=== PATIENT | female | born 1985 | race Two or more races ===

== ENCOUNTER 2017-07-19 10:44 | Inpatient (IN) | payer BC ==
[~2017-07-19] VITALS: Ht 162.6 cm; Wt 92.3 kg
[~2017-07-19 10:44] MED LIST: CEFAZOLIN 1 GM INJ ONE
[2017-07-19 11:18] VITALS: Ht 162.6 cm; Wt 92.3 kg
[2017-07-19 11:19] VITALS: BP 112/70; PULSE 77
[2017-07-19] MEDS ORDERED: PRENAT PO (11:21)
[2017-07-19] MEDS: LACTATED RINGER'S 1,000 ML IV SCH ×3 (11:58→23:26)
[2017-07-19] MEDS ORDERED: OXYTOCIN 30 UNITS/LR 500 ML IV PRN ×2 (12:00→18:30)
[2017-07-19] MEDS ORDERED: METHYLERGONOVINE 0.2 MG INJ IM PRN ×2 (12:00→18:30)
[2017-07-19] MEDS ORDERED: MISOPROSTOL 200 MCG TAB PR PRN ×2 (12:00→18:30)
[2017-07-19] MEDS ORDERED: CARBOPROST 250 MCG INJ IM PRN ×2 (12:00→18:30)
[2017-07-19 12:32] LABS: BASOPHILS % 0.2 % (0.0-2.0); EOSINOPHILS # 0.1 10^3/ul (0.0-0.5); EOSINOPHILS % 1.6 % (0.0-7.0); HEMOGLOBIN 11.5 g/dl (12.0-16.0); LYMPHOCYTES # 1.6 10^3/ul (0.8-2.9); MEAN CORPUSCULAR HEMOGLOBIN 31.2 pg (29.0-33.0); MEAN CORPUSCULAR HGB CONC 33.8 g/dl (32.0-37.0); MEAN CORPUSCULAR VOLUME 92.1 fl (82.0-101.0); MEAN PLATELET VOLUME 11.7 fl (7.4-10.4); MONOCYTE # 0.4 10^3/ul (0.3-0.9); MONOCYTES % 7.7 % (0.0-11.0); NEUTROPHIL # 3.2 10^3/ul (1.6-7.5); NEUTROPHILS % 59.2 % (39.0-77.0); PLATELET COUNT 148 10^3/UL (140-415); RED BLOOD COUNT 3.69 10^6/ul (4.20-5.40); RED CELL DISTRIBUTION WIDTH 15.9 % (11.5-14.5); WHITE BLOOD COUNT 5.5 10^3/ul (4.8-10.8)
[2017-07-19 12:45] LABS: PARTIAL THROMBOPLASTIN TIME 25.8 Sec (25.0-35.0)
[2017-07-19] MEDS ORDERED: CEFAZOLIN 2 GM/50 ML (PMX) 50 ML IVPB ONE (13:00)
[2017-07-19 13:25] LABS: INR 0.96; PROTIME 12.8 Sec (12.2-14.2)
[2017-07-19] MEDS ORDERED: ONDANSETRON 4 MG INJ ONE ×2 (13:39→14:26)
[2017-07-19] MEDS ORDERED: CITRIC ACID/NA CITRATE 30 ML CUP ONE (13:39)
[2017-07-19] MEDS ORDERED: ONDANSETRON 4 MG INJ IV STA (13:45)
[2017-07-19] MEDS ORDERED: CITRIC ACID/NA CITRATE 30 ML CUP PO ONE (14:00)
[2017-07-19] MEDS ORDERED: morphine SULFATE/PF (10 MG/10 ML) INJ ONE (14:25)
[2017-07-19] MEDS ORDERED: OXYTOCIN 10 UNIT INJ ONE (14:26)
[2017-07-19] MEDS ORDERED: PHENYLephrine (100 MCG/ML) 5ML SYG ONE (14:26)
[2017-07-19] MEDS ORDERED: DEXAMETHASONE 4 MG/ML 1 ML INJ ONE (14:26)
[2017-07-19] MEDS ORDERED: METOCLOPRAMIDE 10 MG INJ ONE (14:26)
[2017-07-19] MEDS ORDERED: KETOROLAC 30 MG INJ ONE (14:26)
[2017-07-19] MEDS ORDERED: FENTAnyl 50 MCG/ML VIAL ONE (14:57)
--- NOTE | 2017-07-19 14:58 | PREOPHP ---
DATE OF ADMISSION: 07/19/2017 CHIEF COMPLAINT: Passage of water per vagina. HISTORY OF PRESENT ILLNESS: This is a 32-year-old female, 2, para 1, who has a [employer] confirmed by ultrasound was 08/11/2017. She had been scheduled for an elective primary section due to the fact the patient requested it on the basis of having had a terrible experience with her first delivery which was vaginally done in [place]. She presented today to Labor and Delivery complaining of passage of water since this morning. This was confirmed by pooling and also positive Nitrazine test. She was then prepped for a primary section. PAST MEDICAL HISTORY: The patient denies any chronic medical problems. Denies diabetes, hypertension, cardiac disease, kidney disease, neurological problems, no liver disease, thyroid disease, or any other medical problems. ALLERGIES: SHE HAS NO KNOWN ALLERGIES. MEDICATIONS: She has been taking only vitamins on a regular basis. PAST SURGICAL HISTORY: She delivered in [place] and baby born at 36 weeks on January 2011 and had a very traumatic experience according to the patient. FAMILY HISTORY: Noncontributory. REVIEW OF SYSTEMS: A 12 point review of systems is noncontributory. PHYSICAL EXAMINATION: GENERAL APPEARANCE: Well developed, well nourished, in no distress. Alert and oriented times 3. VITAL SIGNS: Showed a temperature to be 36.7 Celsius, blood pressure 117/73, heart rate 72 per minute, an respirations 20 per minute. HEENT: Within normal limits. Pupils are PERRLA. NECK: Supple. Thyroid is not palpable. There is no lymphadenopathy. LUNGS: Clear to percussion and auscultation. HEART: Regular sinus rhythm without murmur. ABDOMEN: Soft, with the uterus enlarged up to 37 cm above the pubic bone. Single baby, longitudinal lie, cephalic presentation. hearts category 1. PELVIC EXAM: Normal external genitalia. There was fluid coming from the cervix that is Nitrazine positive. Cervix is closed. Fluids clear. EXTREMITIES: Within normal limits. NEUROLOGICAL: Normal. IMPRESSION: 1. Thirty-eight weeks gestation. 2. Premature rupture of membranes. 3. The patient desires primary section based on a very traumatic first delivery. Dictated By: Jase Cooley MD /vivien/maverick /Document#: [id number] CC: Odalys Starr MD;*EndCC* MTDD
[2017-07-19] MEDS ORDERED: morphine 2 MG INJ IV PRN (15:30)
[2017-07-19] MEDS ORDERED: ACETAMINOPHEN 500 MG TAB PO PRN (15:30)
[2017-07-19] MEDS ORDERED: HYDROmorphONE 1 MG/ML SYG IV PRN ×2 (15:30)
[2017-07-19] MEDS ORDERED: NALBUPHINE HCL (10 MG/1 ML) INJ IV PRN (15:30)
[2017-07-19] MEDS ORDERED: DIPHENHYDRAMINE 50 MG INJ IV PRN (15:30)
[2017-07-19] MEDS ORDERED: HYDROmorphONE 0.2 MG/ML PCA IV SCH (15:30)
[2017-07-19] MEDS ORDERED: morphine 4 MG/ML VIAL IV PRN (15:30)
[2017-07-19] MEDS ORDERED: NALOXONE (0.4 MG/ML) INJ IV PRN (15:30)
[2017-07-19] MEDS ORDERED: HYDROCODONE/APAP (5/325) TAB PO PRN (15:30)
--- NOTE | 2017-07-19 15:46 | OPR ---
Operative Report Planned Procedure Procedure date Jul 19, 2017 Procedure(s) Primary under general anesthesia Performed by Dr.Carlos Draper Assisting provider: TOBIN PARADA MD Anesthesiologist: LASHELL POLK MD Pre-procedure diagnosis 38 weeks gestation.The patient desires .Premature ruptured membranes. Anesthesia Type: general spinal Procedure Description Under satisfactory [spinal and general] anesthesia, the patient was prepped and draped and placed in a supine position, tilted to the left. Pfannenstiel incision was made, carried through the subcutaneous tissue. Bleeders brought under control with electrocautery. Fascia incised to the length of the incision. Rectus muscles from the fascia, divided midline. Peritoneum exposed, entered through a transverse incision. Exploration of abdomen revealed gravid uterus. Bladder flap was developed. Transverse incision was made in the lower segment of the uterus. Amniotic sac ruptured. clear[] amniotic fluid noted. [] Nasal oropharyngeal suction was performed. The baby was handed to the team for immediate attention. The placenta was delivered manually intact. Uterine cavity was cleaned with wet sponge and drainage established. Uterus closed in 2 layers using [0 PDS] in continuous fashion. Peritoneal cavity irrigated with warm saline. Sponge, needle and instrument count reported to be correct. Abdominal peritoneum closed with [2-0 chromic] continuously. Rectus muscle approximated with same suture[]. Fascia closed with [0 vycril], and skin closed with -0 monocryl. Estimated blood loss [800]mL. Urine bag contained [500]mL of urine.The patient whistood he procedure well and was taken to the ecovery room with her vitals signs stable. Post-Procedure Post-procedure diagnosis Same.baby boy score 8 and 9 Findings: Live Baby [], Apgars [] and [], weight [], position [], [] presentation []cord. Estimated blood loss: other Specimen(s): no Complication(s): no Pt Condition post procedure: stable Disposition: PACU Post-procedure comments The patient insisted on a primary due to a very bad experience during the first delivery in [place],[facility] Physician Certification I, the undersigned physician, hereby certify that I have discussed the procedure described in this consent form with this patient (or the patient's legal patient support representative), including: * The risk and benefits of the procedure; * Any adverse reactions that may reasonably be expected to occur; * Any alternative efficacious methods of treatment which may be medically viable ; * The potential problems that may occur during recuperation; * Potential for blood transfusion and associated risks/benefits; and * Any research or economic interest I may have regarding this treatment. I further certify that the patient/legally responsible person was encouraged to ask question and that all questions were answered. EDNA WHITE MD Jul 19, 2017 15:45
[2017-07-19] MEDS: KETOROLAC 30 MG INJ IV PRN (16:29)
[2017-07-19] MEDS ORDERED: OXYTOCIN 30 UNITS/LR 500 ML IV SCH (17:00)
[2017-07-19 18:20] VITALS: BP 107/67; PULSE 78; RESP 8
[2017-07-19] MEDS ORDERED: OXYCODONE/ACETAMINOPHEN (5/325) TAB PO PRN (18:30)
[2017-07-19] MEDS: CEFAZOLIN 2 GM/50 ML (PMX) 50 ML IV SCH (19:23)
[2017-07-19 19:50] VITALS: BP 110/68; PULSE 79; RESP 18
[2017-07-19] MEDS: IBUPROFEN 800 MG TAB PO SCH (22:00)
[2017-07-20] VITALS: BP 101/55; PULSE 72; RESP 17
[2017-07-20] MEDS: CEFAZOLIN 2 GM/50 ML (PMX) 50 ML IV SCH ×2 (02:55→11:29)
[2017-07-20 04:00] VITALS: BP 102/57; PULSE 76; RESP 18
[2017-07-20] MEDS: KETOROLAC 30 MG INJ IV PRN (05:57)
[2017-07-20] MEDS: IBUPROFEN 800 MG TAB PO SCH ×3 (06:00→21:44)
[2017-07-20 08:00] VITALS: BP 100/53; PULSE 94; RESP 18
[2017-07-20] MEDS: LACTATED RINGER'S 1,000 ML IV SCH ×2 (08:52→19:15)
[2017-07-20 11:20] LABS: BASOPHILS % 0.1 % (0.0-2.0); EOSINOPHILS % 0.2 % (0.0-7.0); HEMATOCRIT 28.8 % (37.0-47.0); HEMOGLOBIN 9.5 g/dl (12.0-16.0); LYMPHOCYTES # 2.2 10^3/ul (0.8-2.9); LYMPHOCYTES % 24.8 % (15.0-51.0); MEAN CORPUSCULAR HEMOGLOBIN 30.8 pg (29.0-33.0); MEAN CORPUSCULAR VOLUME 93.5 fl (82.0-101.0); MEAN PLATELET VOLUME 11.8 fl (7.4-10.4); MONOCYTE # 0.7 10^3/ul (0.3-0.9); MONOCYTES % 7.6 % (0.0-11.0); NEUTROPHIL # 5.8 10^3/ul (1.6-7.5); NEUTROPHILS % 66.4 % (39.0-77.0); PLATELET COUNT 157 10^3/UL (140-415); RED BLOOD COUNT 3.08 10^6/ul (4.20-5.40); RED CELL DISTRIBUTION WIDTH 15.9 % (11.5-14.5); WHITE BLOOD COUNT 8.7 10^3/ul (4.8-10.8)
[2017-07-20 12:00] VITALS: BP 98/54; PULSE 90; RESP 16
--- NOTE | 2017-07-20 13:55 | PN ---
Date/Time of Note Date/Time of Note DATE: 07/20/17 TIME: 13:53 OB Subjective Subjective Subjective Doing well In good spirits. OB Objective Objective Objective Afebrile/Good output.clear urine. HEENT: WNL Heart: Rhythm Normal Lungs: Clear Abdomen: WNL Extremities: Normal Reflexes: Normal EDNA WHITE MD Jul 20, 2017 13:55
[2017-07-20] MEDS: OXYCODONE/ACETAMINOPHEN (5/325) TAB PO PRN (15:22)
[2017-07-20 16:30] VITALS: BP 98/53; PULSE 91; RESP 16
[2017-07-20] MEDS: PRENATAL VITAMIN PO SCH (17:40)
[2017-07-20 20:00] VITALS: BP 93/57; PULSE 89; RESP 19
[2017-07-20] MEDS: LANOLIN 7 GM TUBE TOP PRN (21:45)
[2017-07-21] MEDS: OXYCODONE/ACETAMINOPHEN (5/325) TAB PO PRN ×3 (00:57→17:26)
[2017-07-21] MEDS: LACTATED RINGER'S 1,000 ML IV SCH (02:20)
[2017-07-21 02:40] VITALS: BP 101/57; PULSE 71; RESP 19
[2017-07-21 04:50] VITALS: BP 101/51; PULSE 78; RESP 18
[2017-07-21] MEDS: IBUPROFEN 800 MG TAB PO SCH ×3 (05:40→22:12)
[2017-07-21 07:20] VITALS: BP 100/45; PULSE 76; RESP 19
[2017-07-21] MEDS: PRENATAL VITAMIN PO SCH (08:36)
--- NOTE | 2017-07-21 08:44 | PN ---
Date/Time of Note Date/Time of Note DATE: 07/21/17 TIME: 08:42 OB Subjective Subjective Subjective Afebrile,feeling well.Very anxious.Passes flatus. OB Objective Objective Objective No problems.Nursing well.Abdomen soft.Dressing intact. HEENT: WNL Heart: Rhythm Normal Lungs: Clear Abdomen: WNL Extremities: Normal Reflexes: Normal EDNA WHITE MD Jul 21, 2017 08:44
[2017-07-21] MEDS: LANOLIN 7 GM TUBE TOP PRN (10:12)
[2017-07-21 16:00] VITALS: BP 107/58; PULSE 75; RESP 19
[2017-07-21 20:00] VITALS: BP 96/59; PULSE 97; RESP 20
[2017-07-22 04:00] VITALS: BP 104/65; PULSE 86; RESP 20
[2017-07-22] MEDS: IBUPROFEN 800 MG TAB PO SCH ×4 (06:42→22:17)
[2017-07-22 08:15] VITALS: BP 104/68; PULSE 86; RESP 18
[2017-07-22] MEDS ORDERED: DIPHTH/TET/ACEL PERTUSS (ADULT) 0.5 ML VIAL IM* ONE (09:00)
[2017-07-22] MEDS: PRENATAL VITAMIN PO SCH (09:34)
--- NOTE | 2017-07-22 13:55 | PN ---
Date/Time of Note Date/Time of Note DATE: 07/22/17 TIME: 13:53 OB Subjective Subjective Subjective Still feels weak.No BM however she passes flatus.Would like to stay one day longer. OB Objective Objective Objective Abdomen soft incision healing well. HEENT: WNL Heart: Rhythm Normal Lungs: Clear Abdomen: WNL Extremities: Normal Reflexes: Normal EDNA WHITE MD Jul 22, 2017 13:55
[2017-07-22] MEDS: MAGNESIUM HYDROXIDE 30ML CUP PO SCH ×2 (14:44→22:18)
[2017-07-22 16:19] VITALS: BP 109/68; PULSE 67; RESP 18
[2017-07-22 20:30] VITALS: BP 109/70; PULSE 97; RESP 18
[2017-07-23] MEDS: LANOLIN 7 GM TUBE TOP PRN ×2 (02:06→17:26)
[2017-07-23 04:30] VITALS: BP 108/54; RESP 18
[2017-07-23] MEDS: IBUPROFEN 800 MG TAB PO SCH ×2 (06:02→15:37)
--- NOTE | 2017-07-23 08:10 | PD.PPDC ---
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 in one week.) EDNA WHITE MD Jul 23, 2017 08:10
[2017-07-23 08:30] VITALS: BP 110/70; PULSE 88; RESP 20
[2017-07-23] MEDS: PRENATAL VITAMIN PO SCH (09:00)
--- NOTE | 2017-07-23 10:12 | DS ---
DATE OF ADMISSION: 07/19/2017 DATE OF DISCHARGE: FINAL DIAGNOSES: A 38-week gestation, primary section. POSTOP DIAGNOSIS: A 38-week gestation, primary section. SUMMARY: This is a 32-year-old female, 2, para 1, who presented in active labor at 38 weeks' gestation. She has requested to be delivered by section due to a very traumatic experience with the first delivery in [place]. She underwent a well-tolerated section under general anesthesia, giving to a baby boy, had scores of 8 and 9. Postoperatively, the patient has done well. She has remained afebrile, and vital signs remain stable. She is passing gas with no problem. The incision is healing well without any signs of infection. DISCHARGE INSTRUCTIONS: She was discharged home with instructions of a regular diet. She is to make an appointment for follow-up visit in the office in 1 week. She was discharged in good condition. She was given a prescription for Percocet 60 tablets to use 1 or 2 every 6 hours p.r.n. pain. Dictated By: Jase Cooley MD /vivien/aniceto /Document#: [id number]
[2017-07-23] MEDS: MAGNESIUM HYDROXIDE 30ML CUP PO SCH (10:13)
[2017-07-23] MEDS ORDERED: INFLUENZA VIRUS VACCINE 0.5 ML SYG IM* ONE (11:00)
[2017-07-23] MEDS ORDERED: DIPHTH/TET/ACEL PERTUSS (ADULT) 0.5 ML VIAL IM* ONE (11:00)
[2017-07-23] MEDS ORDERED: BISACODYL 10 MG SUPP PR ONE (13:00)
== END 2017-07-23 21:30 | disposition home or self-care (01) | DRG 766 ==
LOC: L-D 10:44 → OBT 10:44 → L-D 11:30 → OBT 11:32 → L-D 14:31 → PP1 18:03
PROVIDERS: ADMIT Specialist; ATTEND Specialist
PROC: 10D00Z1 Extraction of Products of Conception, Low, Open Approach (ICD-10-PCS; principal; 2017-07-19 14:45)
PROC: 3E00X4Z Introduction of Serum, Toxoid and Vaccine into Skin and Mucous Membranes, External Approach (ICD-10-PCS; 2017-07-23)
DX: O75.82 Onset (spontaneous) of labor after 37 completed weeks of gestation but before 39 completed weeks gestation, with delivery by (planned) cesarean section (principal); Z23 Encounter for immunization; Z37.0 Single live birth; Z3A.38 38 weeks gestation of pregnancy
CPT/HCPCS: 84112; 85025; 85610; 85730; 86592; 86850; 86900; 86901; 90686; 90715; 94760; 99464; G0463; J0690; J1100; J1170; J1200; J1885; J2210; J2274; J2370; J2405; J2590; J2765; J3010; J7120